=== PATIENT | male | born 1950 | race Caucasian/White ===

== ENCOUNTER 2018-05-25 10:37 | Day surgery (SDC) | payer OTHER ==
[~2018-05-25] VITALS: Ht 170.2 cm; Wt 66.2 kg
[~2018-05-25 10:37] MED LIST: CHAN1PAK13 PO; NS 1,000 ML IV ONE
[2018-05-25] MEDS ORDERED: PROPOFOL 200 MG/20 ML VIAL As Ordered ONE (11:48)
--- NOTE | 2018-05-25 11:58 | ROOR ---
Patient Name: Fran Durham Procedure Date: 05/25/2018 11:37 AM Date of : 1950 Age: 67 Room: [facility] Gender: Male Note Status: Finalized Procedure: Total Colonoscopy to Cecum + Cold Snare Polypectomy Indications: High risk colon cancer surveillance: Personal history of colonic polyps, High risk colon cancer surveillance: Personal history of colon cancer Providers: Laz Olivo MD Referring MD: Serjio Wasserman Md Requesting Provider: Medicines: Monitored Anesthesia Care Complications: No immediate complications. Procedure: Pre-Anesthesia Assessment: - The heart rate, respiratory rate, oxygen saturations, blood pressure, adequacy of pulmonary ventilation, and response to care were monitored throughout the procedure. The Colonoscope was introduced through the anus and advanced to the cecum, identified by appendiceal orifice and ileocecal valve. The colonoscopy was performed without difficulty. The patient tolerated the procedure well. The quality of the bowel preparation was fair. Findings: The perianal and digital rectal examinations were normal. Non-bleeding internal hemorrhoids were found during retroflexion. The hemorrhoids were small and Grade I (internal hemorrhoids that do not prolapse). A small polyp was found at 35 cm proximal to the anus. The polyp was sessile. The polyp was removed with a cold snare. Resection and retrieval were complete. There was evidence of a prior end-to-end colo-colonic anastomosis in the transverse colon. This was patent. The anastomosis was traversed. The exam was otherwise without abnormality on direct and retroflexion views. Impression: - Preparation of the colon was fair. - Non-bleeding internal hemorrhoids. - One small polyp at 35 cm proximal to the anus, removed with a cold snare. Resected and retrieved. - Patent end-to-end colo-colonic anastomosis. - The examination was otherwise normal on direct and retroflexion views. - The exam was otherwise normal to the cecum. Recommendation: - Patient has a contact number available for emergencies. The signs and symptoms of potential delayed complications were discussed with the patient. Return to normal activities tomorrow. Written discharge instructions were provided to the patient. - High fiber diet. - Discharge patient to home. - Continue present medications. - Await pathology results. - Telephone GI clinic for pathology results in 1 week. - Repeat colonoscopy in 5 years for surveillance based on pathology results. - Return to referring physician. - Check Portal Online for Path Results.([email or web address]) - The findings and recommendations were discussed with the patient's family. Laz Olivo MD Laz Olivo MD 05/25/2018 11:57:44 AM Electronically signed by Laz Olivo MD Number of Addenda: 0 Note Initiated On: 05/25/2018 11:37 AM Estimated Blood Loss: Estimated blood loss: none.
[2018-05-25 12:25] VITALS: BP 108/52
== END 2018-05-25 12:50 | disposition home or self-care (01) ==
LOC: M OPP 10:37
PROVIDERS: ATTEND Internal Medicine Gastroenterology
DX: K64.0 First degree hemorrhoids (principal); K63.5 Polyp of colon; Z98.0 Intestinal bypass and anastomosis status; Z86.010 Personal history of colon polyps; Z85.038 Personal history of other malignant neoplasm of large intestine